=== PATIENT | female | born 1980 | race Caucasian/White ===

== ENCOUNTER 2016-11-28 15:31 | Outpatient (CLI) | payer MEDICAID | END 2016-11-28 15:32 | disposition home or self-care (01) | DX: O09.511 Supervision of elderly primigravida, first trimester (principal) ==

== ENCOUNTER 2016-12-13 | Emergency (ER) | payer MEDICAID | END 2016-12-13 18:07 | disposition home or self-care (01) ==

== ENCOUNTER 2016-12-14 17:23 | Emergency (ER) | payer MEDICAID | END 2016-12-14 19:41 | disposition home or self-care (01) | DX: O9A.212 Injury, poisoning and certain other consequences of external causes complicating pregnancy, second trimester (principal); R10.9 Unspecified abdominal pain; W10.9XXA Fall (on) (from) unspecified stairs and steps, initial encounter; O10.912 Unspecified pre-existing hypertension complicating pregnancy, second trimester; O99.282 Endocrine, nutritional and metabolic diseases complicating pregnancy, second trimester; E03.9 Hypothyroidism, unspecified; O99.332 Smoking (tobacco) complicating pregnancy, second trimester; O09.512 Supervision of elderly primigravida, second trimester; Z3A.15 15 weeks gestation of pregnancy ==

== ENCOUNTER 2017-01-22 11:59 | Outpatient (CLI) | payer MEDICAID | END 2017-01-22 12:00 | disposition home or self-care (01) | DX: E03.9 Hypothyroidism, unspecified (principal); Z36 Encounter for antenatal screening of mother ==

== ENCOUNTER 2017-02-25 13:02 | Outpatient (CLI) | payer MEDICAID | END 2017-02-25 13:03 | disposition home or self-care (01) | DX: Z36 Encounter for antenatal screening of mother (principal) ==

== ENCOUNTER 2017-03-05 14:33 | Outpatient (CLI) | payer MEDICAID | END 2017-03-05 14:34 | disposition home or self-care (01) | DX: Z36 Encounter for antenatal screening of mother (principal) ==

== ENCOUNTER 2017-03-19 14:18 | Outpatient (CLI) | payer MEDICAID | END 2017-03-19 14:19 | DX: Z36 Encounter for antenatal screening of mother (principal) ==

== ENCOUNTER 2017-03-26 18:27 | Outpatient (CLI) | payer MEDICAID | END 2017-03-26 20:30 | disposition home or self-care (01) | DX: O99.89 Other specified diseases and conditions complicating pregnancy, childbirth and the puerperium (principal); M79.1 Myalgia; Z3A.31 31 weeks gestation of pregnancy ==

== ENCOUNTER 2017-03-31 14:57 | Outpatient (CLI) | payer MEDICAID | END 2017-03-31 14:58 | disposition home or self-care (01) | DX: Z36 Encounter for antenatal screening of mother (principal) ==

== ENCOUNTER 2017-04-29 15:21 | Outpatient (CLI) | payer MEDICAID | END 2017-04-29 15:22 | disposition home or self-care (01) | LOC: LAB.R 15:21 | PROVIDERS: ATTEND Obstetrics & Gynecology | DX: Z36 Encounter for antenatal screening of mother (principal) | CPT/HCPCS: 87081 ==

== ENCOUNTER 2017-05-05 13:05 | Outpatient (CLI) | payer MEDICAID ==
--- NOTE | 2017-05-06 10:32 | Ultrasound Report ---
OBSTETRICAL ULTRASOUND: 05/05/2017 CLINICAL HISTORY: This is a followup ultrasound primarily for evaluation of cord insertion within the abdomen. TECHNIQUE: Real-time scanning was performed with promotional representative static images obtained. LAST MENSTRUAL PERIOD 08/19/2016 Clinical Age 37 weeks 0 days US Age 36 weeks 3 days EFW Hadlock 2907 g EFW% Hadlock 37% Heart Rate 132 bpm EDC 05/26/2017 US EDC 05/30/2017 BPD Hadlock 36 weeks 3 days; Mean mm 89.9 HC Hadlock 36 weeks 3 days; Mean mm 322.4 AC Hadlock 36 weeks 1 day; Mean mm 322.7 FL Hadlock 36 weeks 4 days; Mean mm 71.3 Presentation cephalic Placental Location posterior Cervical Length 2.7 cm Amniotic Fluid 11.04 cm FINDINGS: Present gestational age indices indicate a gestational age of 36.5 weeks. Ultrasound EDC today is 05/30/2017. Present gestational age is 2.2 weeks less than expected as calculated from patient's initial ultrasound exam. weight 2907 grams. This is in the 37th percentile. abdominal circumference is still greater than the 10th percentile for gestational age. anatomy was not optimally visualized because of age. Also, amniotic fluid volume measured only 11.04 which is in the 25th percentile. For this reason, an adequate view of the umbilical cord insertion into the abdomen could not be obtained today. Placenta appeared to be posterior. No obvious placenta previa was seen. Maternal cervix measured 2.6 cm. IMPRESSION: 1. SINGLE FETUS IS NOTED IN VERTEX POSITION. GESTATIONAL AGE TODAY BY ULTRASOUND IS 36.5 WEEKS. THIS IS 2.2 WEEKS LESS THAN EXPECTED CALCULATED FROM PATIENT'S INITIAL ULTRASOUND. DESPITE THIS, THE WEIGHT AND ABDOMINAL CIRCUMFERENCE ARE STILL WITHIN NORMAL LIMITS RESIDING BETWEEN THE 10TH AND 50TH PERCENTILE FOR GESTATIONAL AGE. 2. ANATOMY COULD NOT BE OPTIMALLY SEEN TODAY. STILL CANNOT ACCURATELY COMMENT REGARDING THE POSITION OF THE UMBILICAL CORD IN RELATIONSHIP TO THE ABDOMEN. 3. POSTERIOR PLACENTA. 4. AMNIOTIC FLUID VOLUME IS WITHIN THE LOWER LIMITS OF NORMAL MEASURING 11.04 CM. MTDD
== END 2017-05-05 13:06 | disposition home or self-care (01) ==
LOC: DI 13:05
PROVIDERS: ATTEND Obstetrics & Gynecology
DX: Z36 Encounter for antenatal screening of mother (principal)
CPT/HCPCS: 76816

== ENCOUNTER 2017-05-07 14:28 | Outpatient (CLI) | payer MEDICAID ==
[2017-05-07 14:41] VITALS: BP 131/86
== END 2017-05-07 15:10 | disposition home or self-care (01) ==
LOC: WFO 14:28 → OB 14:30 → WFO 15:10
PROVIDERS: ATTEND Obstetrics & Gynecology
DX: O36.8130 Decreased fetal movements, third trimester, not applicable or unspecified (principal); Z3A.37 37 weeks gestation of pregnancy
CPT/HCPCS: 59025

== ENCOUNTER 2017-05-14 21:35 | Inpatient (IN) | payer MEDICAID ==
[2017-05-14] MEDS ORDERED: ONDANSETRON 4 MG/2 ML VIAL IVP PRN (22:16)
[2017-05-14] MEDS ORDERED: SODIUM CHLORIDE FLUSH 0.9% 10 ML SYRINGE IVP PRN (22:16)
[2017-05-14 22:31] LABS: BASOPHILS # (AUTO) 0.1 10^3/uL (0.0-0.1); BASOPHILS % (AUTO) 0.9 %; EOSINOPHILS # (AUTO) 0.1 10^3/uL (0.0-0.7); EOSINOPHILS % (AUTO) 0.5 %; HCT - HEMATOCRIT 37.8 % (37.0-47.0); HGB - HEMOGLOBIN 12.9 g/dL (12.0-16.0); LYMPHOCYTES # (AUTO) 3.4 10^3/uL (1.5-3.5); LYMPHOCYTES % (AUTO) 21.5 %; MEAN CORPUSCULAR HEMOGLOBIN 29.9 pg (27.0-31.0); MEAN CORPUSCULAR HGB CONC 34.2 g/dL (32.0-36.0); MEAN CORPUSCULAR VOLUME 87.6 fL (81.0-99.0); MEAN PLATELET VOLUME 8.7 fL (7.9-10.8); MONOCYTES # (AUTO) 1.1 10^3/uL (0.0-1.0); NEUTROPHILS # (AUTO) 11.2 10^3/uL (1.5-6.6); NEUTROPHILS % (AUTO) 70.1 %; RED BLOOD COUNT 4.32 10^6/uL (4.20-5.40); RED CELL DISTRIBUTION WIDTH 12.8 % (12.0-15.0)
[2017-05-14 22:36] VITALS: BP 154/91
[2017-05-14 22:54] LABS: BILIRUBIN,URINE NEGATIVE (NEGATIVE)
[2017-05-14] MEDS ORDERED: LACTATED RINGERS 1,000 ML IV SCH (23:00)
[2017-05-14 23:10] LABS: ALBUMIN/GLOBULIN RATIO 0.7 (1.0-2.2); BILIRUBIN,TOTAL 0.4 mg/dL (0.2-1.0); CREATININE 1.2 mg/dL (0.4-1.0); POTASSIUM 4.1 mmol/L (3.5-5.0); TOTAL PROTEIN 6.4 g/dL (6.7-8.2); URIC ACID 7.6 mg/dL (2.6-7.2)
[2017-05-14 23:13] LABS: WBC,URINE 0-3 /HPF (0-5)
[2017-05-14 23:14] LABS: UR CULTURE IF IND NOT INDICATED
[2017-05-14] MEDS ORDERED: ALBUTEROL 8 GM INHALER INH PRN (23:20)
[2017-05-15] MEDS ORDERED: ALBUTEROL NEB 2.5 MG/3 ML INH PRN (00:28)
[2017-05-15] MEDS ORDERED: DINOPROSTONE 10 MG SUPP VG ONE (00:54)
[2017-05-15] MEDS ORDERED: buPROPion SR 100 MG TABLET PO ONE (01:00)
[2017-05-15] MEDS ORDERED: NICOTINE 14 MG PATCH TOP ONE (01:00)
[2017-05-15] MEDS ORDERED: buPROPion SR 150 MG TABLET PO ONE (01:17)
[2017-05-15] MEDS: ACETAMINOPHEN 325 MG TABLET PO SCH ×2 (01:26→06:52)
--- NOTE | 2017-05-15 01:31 | Ultrasound Preliminary Report ---
Exam: US OB Biophysical Profile IMPRESSION: 1. Single live intrauterine gestation. 2. Biophysical profile score 6 of 8. 3. Discrepant growth with current exam estimated gestational age of 31 weeks 5 days compared to the estimated gestational age of 37 weeks 6 days based on establish due date. [facility] SITE ID: [id number]
--- NOTE | 2017-05-15 01:57 | Ultrasound Report ---
EXAM: BIOPHYSICAL PROFILE Limited obstetric ultrasound EXAM DATE: 05/15/2017 12:26 AM. CLINICAL HISTORY: Decreased movement Chronic HTN. Established ANANT 05/29/2017 COMPARISON: None. TECHNIQUE: Real-time sonographic evaluation of the fetus performed by the bag machine helper. Multiple repre sentative static images were saved for review. FINDINGS: Heart Rate: 142 beats per minute. Presentation: Cephalic. Placental Position: Posterior and fundal Amniotic Fluid Index: 10.1 cm (Normal 8-24). Biophysical Profile: 04/23 Breathing = 2 Movement = 2 Tone = 0 Amniotic Fluid = 2 BPD: 8.53 cm, 34 weeks 3 days HC: 27.94 cm, 30 weeks 4 days AC: 27.96 cm, 32 weeks 0 days FL: 6.22 cm, 32 weeks 1 days EFW: 1906 Gms EFW%: 23% AUA: 31 Weeks 5 days ANANT: 07/11/2017 IMPRESSION: 1. Single live intrauterine gestation. 2. Biophysical profile score 6 of 8. 3. Discrepant growth with current exam estimated gestational age of 31 weeks 5 days compared to the estimated gestational age of 37 weeks 6 days based on establish due date. [facility] Referring Provider Line: [phone] SITE ID: [id number]
[2017-05-15] MEDS ORDERED: SODIUM CHLORIDE FLUSH 0.9% 10 ML SYRINGE IVP SCH (06:00)
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
[2017-05-15] MEDS ORDERED: LEVOTHYROXINE 25 MCG TABLET PO SCH (07:00)
[2017-05-15] MEDS ORDERED: NICOTINE 14 MG PATCH TOP SCH (09:00)
[2017-05-15] MEDS ORDERED: LABETALOL 100 MG TABLET PO SCH (09:00)
[2017-05-15] MEDS ORDERED: LABETALOL 20 MG/4 ML SYRINGE IVP ONE (12:37)
[2017-05-15] MEDS ORDERED: buPROPion XL 150 MG TABLET PO SCH (23:23)
== END 2017-05-15 12:45 | disposition short-term general hospital (02) | DRG 781 ==
LOC: WFO 21:35 → OB 21:36 → WFO 22:09 → OB 22:10
PROVIDERS: ADMIT Obstetrics & Gynecology; ATTEND Obstetrics & Gynecology
PROC: 3E0P7GC Introduction of Other Therapeutic Substance into Female Reproductive, Via Natural or Artificial Opening (ICD-10-PCS; principal; 2017-05-15)
DX: O36.8130 Decreased fetal movements, third trimester, not applicable or unspecified (principal); O11.3 Pre-existing hypertension with pre-eclampsia, third trimester; Z68.41 Body mass index [BMI] 40.0-44.9, adult; O10.913 Unspecified pre-existing hypertension complicating pregnancy, third trimester; O36.5930 Maternal care for other known or suspected poor fetal growth, third trimester, not applicable or unspecified; Z3A.38 38 weeks gestation of pregnancy; O76 Abnormality in fetal heart rate and rhythm complicating labor and delivery; O99.333 Smoking (tobacco) complicating pregnancy, third trimester; F17.210 Nicotine dependence, cigarettes, uncomplicated; O99.513 Diseases of the respiratory system complicating pregnancy, third trimester; J45.909 Unspecified asthma, uncomplicated; O99.343 Other mental disorders complicating pregnancy, third trimester; F31.9 Bipolar disorder, unspecified; F60.3 Borderline personality disorder; F43.10 Post-traumatic stress disorder, unspecified; O09.513 Supervision of elderly primigravida, third trimester; F42.9 Obsessive-compulsive disorder, unspecified; F41.0 Panic disorder [episodic paroxysmal anxiety]; O99.283 Endocrine, nutritional and metabolic diseases complicating pregnancy, third trimester; E03.9 Hypothyroidism, unspecified; E66.9 Obesity, unspecified; O99.613 Diseases of the digestive system complicating pregnancy, third trimester; K21.9 Gastro-esophageal reflux disease without esophagitis; Z62.810 Personal history of physical and sexual abuse in childhood; Z87.898 Personal history of other specified conditions; Z91.5 Personal history of self-harm; Z91.410 Personal history of adult physical and sexual abuse; Z59.9 Problem related to housing and economic circumstances, unspecified
CPT/HCPCS: 76819; 80053; 80306; 81001; 82570; 83615; 84156; 84450; 84550; 85025; 87086; 99213; 99214

== ENCOUNTER 2017-05-15 12:50 | Outpatient (CLI) | payer MEDICAID | END 2017-05-15 12:51 | disposition short-term general hospital (02) | LOC: EMS 12:50 | PROVIDERS: ATTEND Surgery | DX: O14.93 Unspecified pre-eclampsia, third trimester (principal); Z3A.38 38 weeks gestation of pregnancy | CPT/HCPCS: A0170; A0425; A0434 ==

== ENCOUNTER 2017-06-23 08:00 | Outpatient (CLI) | payer MEDICAID | END 2017-06-23 08:01 | disposition home or self-care (01) | LOC: LAB.R 08:00 | PROVIDERS: ATTEND Obstetrics & Gynecology | DX: Z11.3 Encounter for screening for infections with a predominantly sexual mode of transmission (principal) | CPT/HCPCS: 87491; 87591 ==

== ENCOUNTER 2017-07-03 16:59 | Emergency (ER) | payer MEDICAID ==
[2017-07-03 17:14] VITALS: BP 139/89
--- NOTE | 2017-07-03 17:49 | ED Physician Documentation ---
PD HPI OPHTHO - Stated complaint Stated Complaint: L EYE SWELLING - Chief complaint Chief Complaint: Heent - History obtained from History obtained from: Patient - History of Present Illness Timing - onset: How many weeks ago (1) Timing - duration: Weeks (1) Timing - details: Gradual onset, Still present Location: Left Quality / character: Burning Associated symptoms: Redness, Swelling, Tearing, Discharge (mild), Photophobia ( mild). No: Matting, FB sensation, Decreased vision Contributing factors: No: Exposed to conjunctivitis, Recent URI, FB, Wears contacts Similar symptoms before: Has not had sx before Review of Systems Constitutional: denies: Fever, Chills Eyes: reports: Photophobia, Discharge, Irritation. 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 : None HEENT: None Psych: Depression, Anxiety, Post traumatic stress disorder Musculoskeletal: None, Chronic back pain Derm: None - Past Surgical History Past Surgical History: Yes - Present Medications Home Medications: Ambulatory Orders Medication Instructions Recorded Confirmed Acetaminophen [Tylenol] 325 mg 11/15/16 Albuterol Sulf [Ventolin Hfa 1 - 2 puffs PO 07/03/17 Inhaler] Bupropion HCl [Wellbutrin Sr] 200 mg PO DAILY 07/03/17 07/03/17 High Bp Med 07/03/17 Montelukast [Singulair] 10 mg PO DAILY 07/03/17 07/03/17 Samuel/Polymyx B Sulf/Dexameth 2 drops LEFTEYE QID #1 bottle 07/03/17 [Cmmmen-Zwnsr-Cfztvwwf Eye Drop] raNITIdine [Zantac] PO BID 07/03/17 - Allergies Allergies/Adverse Reactions: Allergies Allergy/AdvReac Type Severity Reaction Status Date / Time Penicillins Allergy Nausea Verified 11/02/16 20:24 codeine AdvReac Nausea Verified 11/02/16 20:24 - Social History Does the pt smoke?: Yes Smoking Status: Current every day smoker Does the pt drink ETOH?: No Does the pt have substance abuse?: No - Immunizations Immunizations are current?: Yes - POLST Patient has POLST: No PD ED PE NORMAL - Vitals Vital signs reviewed: Yes - General General: Alert and oriented X 3, No acute distress, Well developed/nourished - HEENT HEENT: PERRL, Ears normal, Pharynx benign - Neck Neck: Supple, no meningeal sign, No adenopathy - Cardiac Cardiac: RRR, No murmur - Respiratory Respiratory: Clear bilaterally PD ED PE EXPANDED - Eyes Eyes: EOMI, Left eye, Eyelid swelling, Anterior chambers clear, Normal fundi. No: Conj/sclera FB, Corneal abrasion, Corneal ulcer, Fluorescein uptake Results - Vitals Vitals: Oxygen O2 Source Room air PD MEDICAL DECISION MAKING - ED course Complexity details: considered differential (no noted FB. Has redness of conjunctiva with mild crusting. No erosions. Right eye okay. ), d/w patient Departure - Departure Disposition: 01 Home, Self Care Clinical Impression: Conjunctivitis Qualifiers: Conjunctivitis type: acute Acute conjunctivitis type: bacterial Laterality: left Qualified Code(s): H10.32 - Unspecified acute conjunctivitis, left eye Condition: Stable Record reviewed to determine appropriate education?: Yes Instructions: ED Conjunctivitis Bacterial Prescriptions: Samuel/Polymyx B Sulf/Dexameth [Mnmdtn-Lctmg-Ylhwhjsq Eye Drop] 2 drops LEFTEYE QID #1 bottle Comments: Use antibiotic drops 4 times a day in the affected eye. Tylenol or ibuprofen if needed for pain. Recheck if not better over the next couple of days. Discharge Date/Time: 07/03/17 18:22
[2017-07-03] MEDS ORDERED: PROPARACAINE 0.5% OPHTH DROPS 15 ML EACHEYE STA (17:55)
[2017-07-03] MEDS ORDERED: IBUPROFEN 400 MG TABLET PO STA (18:05)
[2017-07-03] MEDS ORDERED: HYDROcod/ACETAM 5/325 MG TABLET PO STA (18:05)
[2017-07-03] MEDS ORDERED: IBUPROFEN 400 MG TABLET PO ONE (18:11)
[2017-07-03] MEDS ORDERED: HYDROcod/ACETAM 5/325 MG TABLET ONE (18:12)
== END 2017-07-03 18:22 | disposition home or self-care (01) ==
LOC: ED 16:59
DX: H10.32 Unspecified acute conjunctivitis, left eye (principal); I10 Essential (primary) hypertension; F17.200 Nicotine dependence, unspecified, uncomplicated
CPT/HCPCS: 99283; A9270

== ENCOUNTER 2017-08-29 16:42 | Emergency (ER) | payer MEDICAID ==
[2017-08-29 16:52] VITALS: BP 155/100
--- NOTE | 2017-08-29 18:01 | ED Physician Documentation ---
PD HPI BACK PAIN - Stated complaint Stated Complaint: BACK PX - Chief complaint Chief Complaint: Back Pain - History obtained from History obtained from: Patient - History of Present Illness Timing - onset: Today (awoke with pain in back radiating to right back of leg.) Timing - duration: Days (1) Timing - details: Abrupt onset, Still present Location: Lower, Right Quality: Pain, Spasm, Aching Associated symptoms: No: Fever, Weakness, Numbness, Incontinent of urine Improves with: Rest Worsened by: Movement, Lifting Contributing factors: No: Lifting, Twisting, Trauma, IVDA Similar symptoms before: Diagnosis (sciatic pain due to disc problems.) Review of Systems Constitutional: denies: Fever, Chills GI: denies: Abdominal Pain, Nausea, Vomiting, Diarrhea Skin: denies: Rash, Lesions Neurologic: denies: Focal weakness, Numbness PD PAST MEDICAL HISTORY - Past Medical History Past Medical History: Yes Cardiovascular: Hypertension Respiratory: Asthma Neuro: Head injury Endocrine/Autoimmune: HyPOthyroidism GI: None 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 : None HEENT: None Psych: Depression, Anxiety, Post traumatic stress disorder Musculoskeletal: None, Chronic back pain Derm: None - Past Surgical History Past Surgical History: No - Present Medications Home Medications: Ambulatory Orders Medication Instructions Recorded Confirmed Acetaminophen [Tylenol] 325 mg PO PRN 11/15/16 08/29/17 Albuterol Sulf [Ventolin Hfa 1 - 2 puffs PO DAILY 07/03/17 08/29/17 Inhaler] Bupropion HCl [Wellbutrin Sr] 200 mg PO DAILY 07/03/17 08/29/17 Montelukast [Singulair] 10 mg PO DAILY 07/03/17 08/29/17 raNITIdine [Zantac] 1 tab PO BID 07/03/17 08/29/17 Cyclobenzaprine [Flexeril] 10 mg PO TID PRN #30 tablet 08/29/17 Dexamethasone [Decadron] 4 mg PO DAILY #5 tablet 08/29/17 Oxycodone HCl/Acetaminophen 1 each PO Q6H PRN #20 tablet 08/29/17 [Percocet 5-325 mg Tablet] - Allergies Allergies/Adverse Reactions: Allergies Allergy/AdvReac Type Severity Reaction Status Date / Time Penicillins Allergy Nausea Verified 08/29/17 16:52 codeine AdvReac Nausea Verified 08/29/17 16:52 - Social History Does the pt smoke?: Yes Smoking Status: Current every day smoker Does the pt drink ETOH?: No Does the pt have substance abuse?: No - Immunizations Immunizations are current?: Yes - POLST Patient has POLST: No PD ED PE NORMAL - Vitals Vital signs reviewed: Yes - General General: Alert and oriented X 3, No acute distress, Well developed/nourished - Abdomen Abdomen: Soft, Non tender - Back Back: No CVA TTP, No spinal TTP (tender right lateral muscles focally. 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 ), d/w patient Departure - Departure Disposition: 01 Home, Self Care Clinical Impression: Low back pain Qualifiers: Chronicity: acute Back pain laterality: bilateral Sciatica presence: without sciatica Qualified Code(s): M54.5 - Low back pain Condition: Stable Record reviewed to determine appropriate education?: Yes Instructions: ED Low Back Pain Injury Prescriptions: Cyclobenzaprine [Flexeril] 10 mg PO TID PRN #30 tablet PRN Reason: Spasms Dexamethasone [Decadron] 4 mg PO DAILY #5 tablet Oxycodone HCl/Acetaminophen [Percocet 5-325 mg Tablet] 1 each PO Q6H PRN #20 tablet PRN Reason: Pain Comments: Heat and gentle stretching for the low back. Continue the ibuprofen a couple times a day. Add Decadron also for inflammation. Flexeril for spasms and stiffness. Add Tylenol or Percocet if needed for pain. Recheck if not improved over the next several days to week. Return if worsening or other symptoms develop. Discharge Date/Time: 08/29/17 19:18
[2017-08-29] MEDS ORDERED: oxyCOD/ACETAMIN 5 MG/325 MG TABLET PO STA (18:39)
[2017-08-29] MEDS ORDERED: CYCLOBENZAPRINE 10 MG TABLET PO STA (18:39)
[2017-08-29] MEDS ORDERED: DEXAMETHASONE 10 MG/ML VIAL PO STA (18:39)
[2017-08-29] MEDS ORDERED: CYCLOBENZAPRINE 10 MG Prepack 2 PO PRN (18:40)
[2017-08-29] MEDS ORDERED: oxyCODONE/ACET 5/325 Prepack 4 PO STA (18:40)
[2017-08-29] MEDS ORDERED: oxyCODONE/ACET 5/325 Prepack 4 PO ONE (18:52)
[2017-08-29] MEDS ORDERED: oxyCOD/ACETAMIN 5 MG/325 MG TABLET PO ONE (18:52)
[2017-08-29] MEDS ORDERED: CYCLOBENZAPRINE 10 MG TABLET PO ONE (18:52)
[2017-08-29] MEDS ORDERED: DEXAMETHASONE 10 MG/ML VIAL ONE (18:52)
[2017-08-29] MEDS ORDERED: CYCLOBENZAPRINE 10 MG Prepack 2 PO ONE (18:53)
== END 2017-08-29 19:18 | disposition home or self-care (01) ==
LOC: ED 16:42
DX: M54.5 Low back pain (principal); I10 Essential (primary) hypertension; E03.9 Hypothyroidism, unspecified; F17.200 Nicotine dependence, unspecified, uncomplicated
CPT/HCPCS: 99283; A9270

== ENCOUNTER 2017-10-07 13:17 | Emergency (ER) | payer MEDICAID ==
[2017-10-07 13:32] VITALS: BP 111/81
--- NOTE | 2017-10-07 13:54 | ED Physician Documentation ---
PD HPI URI - Stated complaint Stated Complaint: COUGH,BODY ACHES - Chief complaint Chief Complaint: Heent - History obtained from History obtained from: Patient - History of Present Illness Timing - onset: Other (36-year-old woman who uses tobacco, she has been sick for about a month with cough productive of green sputum and some shortness of breath with exertion. She also has a runny nose and sore throat and some body aches and headache. There is no associated fever or chill. She has had some sweats at night and has difficulty sleeping because of the cough. She was seen at another facility about a week ago and started on a 10 day course of Levaquin which has not helped.) Review of Systems Constitutional: reports: Sweats. 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 : None HEENT: None Psych: Depression, Anxiety, Post traumatic stress disorder Musculoskeletal: None, Chronic back pain Derm: None - Past Surgical History Past Surgical History: No - Present Medications Home Medications: Ambulatory Orders Medication Instructions Recorded Confirmed Albuterol Sulf [Ventolin Hfa 1 - 2 puffs PO DAILY 07/03/17 10/07/17 Inhaler] Bupropion HCl [Wellbutrin Sr] 200 mg PO DAILY 07/03/17 10/07/17 raNITIdine [Zantac] 1 tab PO BID 07/03/17 10/07/17 Albuterol Sulfate [Proventil Hfa 1 - 2 puffs IH Q4H PRN #1 10/07/17 Inhaler] hfa.aer.[email or web address] Hydrocodone Bit/Homatrop Me-Br 5 - 10 ml PO Q6H PRN #120 ml 10/07/17 [Hydrocodone-Homatropine Syrup] Levothyroxine Sodium 50 mcg PO DAILY 10/07/17 10/07/17 predniSONE [Deltasone] 20 mg PO [id number] #21 tab 10/07/17 - Allergies Allergies/Adverse Reactions: Allergies Allergy/AdvReac Type Severity Reaction Status Date / Time Penicillins Allergy Nausea Verified 08/29/17 16:52 codeine AdvReac Nausea Verified 08/29/17 16:52 - Social History Does the pt smoke?: Yes Smoking Status: Current every day smoker Does the pt drink ETOH?: No Does the pt have substance abuse?: No - Immunizations Immunizations are current?: Yes - POLST Patient has POLST: No PD ED PE NORMAL - Vitals Vital signs reviewed: Yes - General General: Alert and oriented X 3, No acute distress - HEENT HEENT: PERRL, EOMI - Neck Neck: Supple, no meningeal sign, No bony TTP - Cardiac Cardiac: RRR, No murmur - Respiratory Respiratory: No respiratory distress, Clear bilaterally - Abdomen Abdomen: Non tender - Extremities Extremities: No edema, No calf tenderness / cord - Neuro Neuro: Alert and oriented X 3, Normal speech Results - Vitals Vitals: Vital Signs - 24 hr 10/07/17 13:29 Temperature 36.4 C L Heart Rate 89 Respiratory 17 Rate Blood Pressure 111/81 H O2 Saturation 99 Oxygen O2 Source Room air PD MEDICAL DECISION MAKING - ED course ED course: 36-year-old woman with clinical bronchitis. No evidence of bacterial infection which probably explains the fact that she has not resolved with antibiotics. She was counseled at length quit smoking. Departure - Departure Disposition: Home, Self Care Clinical Impression: Bronchitis Condition: Good Record reviewed to determine appropriate education?: Yes Instructions: ED Upper Resp Infec No Abx Tx Prescriptions: Albuterol Sulfate [Proventil Hfa Inhaler] 1 - 2 puffs IH Q4H PRN #1 hfa.[email or web address] PRN Reason: Cough Hydrocodone Bit/Homatrop Me-Br [Hydrocodone-Homatropine Syrup] 5 - 10 ml PO Q6H PRN #120 ml PRN Reason: Cough predniSONE [Deltasone] 20 mg PO [id number] #21 tab Comments: Call your doctor to arrange a follow-up appointment, make the next available appointment. In the interim, return anytime if worse or if new symptoms develop. Your blood pressure was elevated today on check into the emergency department. This does not mean that you have hypertension, it is a common phenomenon to come to the emergency department and have elevated blood pressure. I recommend that you see your primary care physician within the week to have it rechecked when you are feeling better. Forms: Activity restrictions
== END 2017-10-07 14:00 | disposition home or self-care (01) ==
LOC: ED 13:17
DX: J40 Bronchitis, not specified as acute or chronic (principal); I10 Essential (primary) hypertension; E03.9 Hypothyroidism, unspecified; F17.200 Nicotine dependence, unspecified, uncomplicated
CPT/HCPCS: 99283

== ENCOUNTER 2017-10-10 21:46 | Emergency (ER) | payer MEDICAID ==
--- NOTE | 2017-10-10 22:10 | ED Physician Documentation ---
PD HPI URI - Stated complaint Stated Complaint: SHARPE/COUGH - Chief complaint Chief Complaint: Resp - History obtained from History obtained from: Patient - History of Present Illness Timing - onset: How many weeks ago (2) Timing duration: Weeks (2) Timing details: Gradual onset, Still present Associated symptoms: Nasal congestion, Dry cough, Chest pain (with coughing). No: Fever (not anymore), Swollen nodes, Hemoptysis Improves by: Rest, Medication (cough med helped but inhaler doesn't seem to help.) Similar symptoms before: Has not had sx before Recently seen: Emergency Dept (4-5 days ago with Rx for Pred, albuterol and hydrocodone cough med. She says cough med was helping well but is out of it. Inhaler not really helping.) Review of Systems Constitutional: reports: Myalgias, Fatigue. denies: Fever Nose: reports: Congestion Throat: denies: Sore throat Cardiac: reports: Chest pain / pressure Respiratory: reports: Cough. denies: Dyspnea, Wheezing GI: reports: Nausea. 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 : None HEENT: None Psych: Depression, Anxiety, Post traumatic stress disorder Musculoskeletal: None, Chronic back pain Derm: None - Past Surgical History Past Surgical History: No - Present Medications Home Medications: Ambulatory Orders Medication Instructions Recorded Confirmed Albuterol Sulf [Ventolin Hfa 1 - 2 puffs PO DAILY 07/03/17 10/10/17 Inhaler] Bupropion HCl [Wellbutrin Sr] 200 mg PO DAILY 07/03/17 10/10/17 raNITIdine [Zantac] 1 tab PO BID 07/03/17 10/10/17 Albuterol Sulfate [Proventil Hfa 1 - 2 puffs IH Q4H PRN #1 10/07/17 10/10/17 Inhaler] hfa.aer.ad Hydrocodone Bit/Homatrop Me-Br 5 - 10 ml PO Q6H PRN #120 ml 10/07/17 10/10/17 [Hydrocodone-Homatropine Syrup] Levothyroxine Sodium 50 mcg PO DAILY 10/07/17 10/10/17 predniSONE [Deltasone] 20 mg PO CONCK56ENW #21 tab 10/07/17 10/10/17 Benzonatate [Tessalon] 100 mg PO TID PRN #25 capsule 10/10/17 Hydrocodone Bit/Homatrop Me-Br 5 - 10 ml PO Q6H PRN #240 ml 10/10/17 [Hydrocodone Compound Syrup] - Allergies Allergies/Adverse Reactions: Allergies Allergy/AdvReac Type Severity Reaction Status Date / Time Penicillins Allergy Nausea Verified 10/10/17 21:56 codeine AdvReac Nausea Verified 10/10/17 21:56 - Social History Does the pt smoke?: Yes Smoking Status: Current every day smoker Does the pt drink ETOH?: No Does the pt have substance abuse?: No - Immunizations Immunizations are current?: Yes - POLST Patient has POLST: No PD ED PE NORMAL - Vitals Vital signs reviewed: Yes - General General: Alert and oriented X 3, No acute distress, Well developed/nourished - HEENT HEENT: Ears normal, Pharynx benign - Neck Neck: Supple, no meningeal sign, No adenopathy - Cardiac Cardiac: RRR, No murmur - Respiratory Respiratory: Clear bilaterally - Abdomen Abdomen: Soft, Non tender - Back Back: No CVA TTP - Derm Derm: Normal color, Warm and dry - Neuro Neuro: Alert and oriented X 3, No motor deficit, Normal speech Results - Vitals Vitals: Vital Signs - 24 hr 10/10/17 10/10/17 21:54 23:35 Temperature 36.9 C 36.8 C Heart Rate 93 93 Respiratory 20 18 Rate Blood Pressure 124/85 H 122/80 O2 Saturation 98 95 Oxygen O2 Source Room air PD MEDICAL DECISION MAKING - ED course Complexity details: reviewed old records, considered differential (still seems like viral bronchitis and residual cough now of it. ), d/w patient Departure - Departure Disposition: 01 Home, Self Care Clinical Impression: Upper respiratory infection Qualifiers: URI type: unspecified URI Qualified Code(s): J06.9 - Acute upper respiratory infection, unspecified Condition: Stable Record reviewed to determine appropriate education?: Yes Instructions: ED Upper Resp Infec No Abx Tx Prescriptions: Benzonatate [Tessalon] 100 mg PO TID PRN #25 capsule PRN Reason: Cough Hydrocodone Bit/Homatrop Me-Br [Hydrocodone Compound Syrup] 5 - 10 ml PO Q6H PRN #240 ml PRN Reason: Cough Comments: Continue the prednisone taper and continue using the albuterol inhaler 2 puffs 4 times a day for the next week or so. This tries to reduce bronchial irritation and inflammation. To it add Tessalon if needed for cough. Drink lots of fluids. Tylenol or ibuprofen if needed for pain. Add hydrocodone cough syrup only if needed for worse cough. After bronchitis, upper respiratory infection the cough can continue for several weeks to a month. Hopefully will taper down soon. Discharge Date/Time: 10/10/17 22:40
[2017-10-10] MEDS ORDERED: HYDROcod/ACET 5/325 Prepack 6 PO ONE ×2 (22:15→22:25)
[2017-10-10] MEDS ORDERED: BENZONATATE 100 MG CAPSULE PO STA (22:15)
[2017-10-10] MEDS ORDERED: BENZONATATE 100 MG CAPSULE PO ONE (22:25)
[2017-10-11 00:01] VITALS: BP 122/80
== END 2017-10-10 22:40 | disposition home or self-care (01) ==
LOC: ED 21:46
DX: J06.9 Acute upper respiratory infection, unspecified (principal); I10 Essential (primary) hypertension; J45.909 Unspecified asthma, uncomplicated; E03.9 Hypothyroidism, unspecified; F17.200 Nicotine dependence, unspecified, uncomplicated
CPT/HCPCS: 99283; A9270

== ENCOUNTER 2017-10-13 11:16 | Emergency (ER) | payer MEDICAID ==
--- NOTE | 2017-10-13 11:59 | ED Physician Documentation ---
PD HPI URI - Stated complaint Stated Complaint: REFIL MED, COUGH - Chief complaint Chief Complaint: Resp - History obtained from History obtained from: Patient - History of Present Illness Timing - onset: How many weeks ago (3) Timing duration: Weeks (3) Timing details: Gradual onset, Still present Associated symptoms: Nasal congestion, Rhinorrhea, Sore throat, Dry cough Improves by: Rest, Medication Worsened by: Activity Similar symptoms before: Diagnosis (bronchitis) Recently seen: Emergency Dept - Additional information Additional information: Patient is a 36-year-old female has had a cough for the past 3 weeks she has been on a course of Levaquin without improvement she is been evaluated twice here in the emergency department she was seen here yesterday and prescribed Tessalon and a cough syrup containing codeine and she has lost her prescription. 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 : None HEENT: None Psych: Depression, Anxiety, Post traumatic stress disorder Musculoskeletal: None, Chronic back pain Derm: None - Past Surgical History Past Surgical History: No - Present Medications Home Medications: Ambulatory Orders Medication Instructions Recorded Confirmed Bupropion HCl [Wellbutrin Sr] 200 mg PO DAILY 07/03/17 10/13/17 raNITIdine [Zantac] 1 tab PO BID 07/03/17 10/13/17 Albuterol Sulfate [Proventil Hfa 1 - 2 puffs IH Q4H PRN #1 10/07/17 10/13/17 Inhaler] hfa.aer.ad Levothyroxine Sodium 50 mcg PO DAILY 10/07/17 10/13/17 cefUROXime axetil [Ceftin] 500 mg PO Q12H #20 tablet 10/13/17 - Allergies Allergies/Adverse Reactions: Allergies Allergy/AdvReac Type Severity Reaction Status Date / Time Penicillins Allergy Nausea Verified 10/13/17 11:32 codeine AdvReac Nausea Verified 10/13/17 11:32 - Social History Does the pt smoke?: Yes Smoking Status: Current every day smoker Does the pt drink ETOH?: No Does the pt have substance abuse?: No - Immunizations Immunizations are current?: Yes - POLST Patient has POLST: No PD ED PE NORMAL - Vitals Vital signs reviewed: Yes (Hypertensive) - General General: No acute distress, Well developed/nourished - HEENT HEENT: Atraumatic, PERRL, EOMI, Pharynx benign, Other (The right TM is inflamed with rounding of the umbo the left is clear.) - Neck Neck: Supple, no meningeal sign, No bony TTP - Cardiac Cardiac: RRR, No murmur - Respiratory Respiratory: No respiratory distress, Other (Scattered wheezes and rhonchi) - Abdomen Abdomen: Soft, Non tender - Back Back: No CVA TTP, No spinal TTP - Derm Derm: Normal color, Warm and dry, No rash - Extremities Extremities: No deformity, No edema - Neuro Neuro: No motor deficit, No sensory deficit Eye Opening: Spontaneous Motor: Obeys Commands Verbal: Oriented GCS Score: 15 - Psych Psych: Normal mood, Normal affect Results - Vitals Vitals: Vital Signs - 24 hr 10/13/17 11:23 Temperature 35.9 C L Heart Rate 89 Respiratory 17 Rate Blood Pressure 134/89 H O2 Saturation 98 Oxygen O2 Source Room air PD MEDICAL DECISION MAKING - ED course Complexity details: reviewed old records, considered differential, d/w patient ED course: 36-year-old female with a history of bronchitis on examination today does have inflammation of the right middle ear. We will place her on some antibiotic with this. She has been on a course of Levaquin we will switch to Augmentin. She did lose a prescription containing codeine we will not refill that we will refill her Tessalon. Departure - Departure Disposition: 01 Home, Self Care Clinical Impression: Otitis media Qualifiers: Otitis media type: suppurative Chronicity: acute Laterality: right Recurrence: not specified as recurrent Spontaneous tympanic membrane rupture: without spontaneous rupture Qualified Code(s): H66.001 - Acute suppurative otitis media without spontaneous rupture of ear drum, right ear Condition: Stable Instructions: ED Otitis Media Acute Adult Follow-Up: Ren Apple PA-C [Primary Care Provider] - Prescriptions: cefUROXime axetil [Ceftin] 500 mg PO Q12H #20 tablet
[2017-10-13 12:34] VITALS: BP 132/91
== END 2017-10-13 12:33 | disposition home or self-care (01) ==
LOC: ED 11:16
DX: H66.001 Acute suppurative otitis media without spontaneous rupture of ear drum, right ear (principal); I10 Essential (primary) hypertension; E03.9 Hypothyroidism, unspecified; F17.200 Nicotine dependence, unspecified, uncomplicated
CPT/HCPCS: 99283

== ENCOUNTER 2017-11-15 22:47 | Emergency (ER) | payer MEDICAID ==
[2017-11-15 22:53] VITALS: BP 142/80
[2017-11-15 23:05] LABS: BILIRUBIN,URINE NEGATIVE (NEGATIVE); GLUCOSE, URINE (UA) NEGATIVE (NEGATIVE); KETONES,URINE (UA) NEGATIVE (NEGATIVE); LEUKOCYTE ESTERASE, URINE NEGATIVE (NEGATIVE); NITRITE,URINE NEGATIVE (NEGATIVE); OCCULT BLOOD,URINE TRACE-INTA (NEGATIVE); PROTEIN,URINE NEGATIVE (NEGATIVE); UROBILINOGEN,URINE 0.2 (NORMAL) E.U./dL (NORMAL)
[2017-11-15 23:12] LABS: CLARITY,URINE CLEAR (CLEAR); HCG UR QUAL NEGATIVE
[2017-11-15] MEDS ORDERED: ACETAMINOPHEN 500 MG TABLET PO STA (23:12)
[2017-11-15] MEDS ORDERED: CYCLOBENZAPRINE 10 MG TABLET PO STA (23:12)
--- NOTE | 2017-11-15 23:15 | ED Physician Documentation ---
PD HPI BACK PAIN - Stated complaint Stated Complaint: LOWER BACK PX - Chief complaint Chief Complaint: Back Pain - History obtained from History obtained from: Patient - History of Present Illness Timing - onset: Today Timing - details: Abrupt onset, Still present Location: Upper, Lower, Right, Left Quality: Pain, Spasm Associated symptoms: No: Fever, Weakness, Numbness, Hematuria Worsened by: Movement, Palpation Similar symptoms before: Has not had sx before Recently seen: Not recently seen - Additional information Additional information: Patient is a 37 year old female who is presenting to the emergency department for back pain. patient states that she was coughing this evening when she feels like she caused the muslces in her back to spasm. patient denies any trauma, or neurological deficit. patient took 800mg of motrin with little relief. Review of Systems Constitutional: denies: Fever, Chills Eyes: reports: Reviewed and negative Ears: reports: Reviewed and negative Nose: reports: Reviewed and negative Throat: reports: Reviewed and negative Cardiac: reports: Reviewed and negative Respiratory: reports: Reviewed and negative GI: reports: Reviewed and negative : denies: Dysuria, Frequency, Unable to Void, Incontinent, Discharge, Vaginal bleeding Skin: denies: Lesions, Abrasion (s) Musculoskeletal: reports: Back pain. 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 : None HEENT: None Psych: Depression, Anxiety, Post traumatic stress disorder Musculoskeletal: None, Chronic back pain Derm: None - Past Surgical History Past Surgical History: No - Present Medications Home Medications: Ambulatory Orders Medication Instructions Recorded Confirmed Bupropion HCl [Wellbutrin Sr] 200 mg PO DAILY 07/03/17 10/13/17 raNITIdine [Zantac] 1 tab PO BID 07/03/17 10/13/17 Albuterol Sulfate [Proventil Hfa 1 - 2 puffs IH Q4H PRN #1 10/07/17 10/13/17 Inhaler] hfa.aer.ad Levothyroxine Sodium 50 mcg PO DAILY 10/07/17 10/13/17 cefUROXime axetil [Ceftin] 500 mg PO Q12H #20 tablet 10/13/17 Cyclobenzaprine [Flexeril] 10 mg PO TID PRN #7 tablet 11/15/17 - Allergies Allergies/Adverse Reactions: Allergies Allergy/AdvReac Type Severity Reaction Status Date / Time Penicillins Allergy Nausea Verified 10/13/17 11:32 codeine AdvReac Nausea Verified 10/13/17 11:32 - Social History Does the pt smoke?: Yes Smoking Status: Current every day smoker Does the pt drink ETOH?: No Does the pt have substance abuse?: No - Immunizations Immunizations are current?: Yes - POLST Patient has POLST: No PD ED PE NORMAL - Vitals Vital signs reviewed: Yes - General General: Alert and oriented X 3, No acute distress - HEENT HEENT: Atraumatic, PERRL - Cardiac Cardiac: RRR, No murmur - Respiratory Respiratory: No respiratory distress - Abdomen Abdomen: Soft, Non distended - Derm Derm: Normal color, Warm and dry, No rash - Extremities Extremities: No deformity, No edema - Neuro Neuro: Alert and oriented X 3, No motor deficit, No sensory deficit, Normal speech Eye Opening: Spontaneous Motor: Obeys Commands Verbal: Oriented GCS Score: 15 PD ED PE EXPANDED - Back Back: Soft tissue tenderness (mild paraspinal muscle tenderness, no bony tenderness or deformity) Results - Vitals Vitals: Vital Signs - 24 hr 11/15/17 22:49 Temperature 36.5 C Heart Rate 89 Respiratory 20 Rate Blood Pressure 142/80 H O2 Saturation 93 Oxygen O2 Source Room air - Labs Labs: Laboratory Tests 11/15/17 23:00 Urine Color YELLOW Urine Clarity CLEAR Urine pH 6.0 Ur Specific [place] >=1.030 H Urine Protein NEGATIVE Urine Glucose (UA) NEGATIVE Urine Ketones NEGATIVE Urine Occult Blood TRACE-INTA Urine Nitrite NEGATIVE Urine Bilirubin NEGATIVE Urine Urobilinogen 0.2 (NORMAL) Ur Leukocyte Esterase NEGATIVE Ur Microscopic Review NOT INDICATED Urine Culture Comments NOT INDICATED Urine HCG, Qual NEGATIVE PD MEDICAL DECISION MAKING - ED course Complexity details: reviewed old records, reviewed results, re-evaluated patient , considered differential, d/w patient, d/w family ED course: Patient was seen and examined at bedside. patient was well appearing and in no distress. urine was collected and within normal limits. patient was treated with tylenol and flexeril. Patient's imaging was non traumatic and imaging was not indicated at this time. patient required no further work up and was stable for discharge with outpatient follow up. Departure - Departure Disposition: 01 Home, Self Care Clinical Impression: Back pain Condition: Good Instructions: ED Spasm Back No Trauma Follow-Up: Ren Apple PA-C [Primary Care Provider] - As Needed Prescriptions: Cyclobenzaprine [Flexeril] 10 mg PO TID PRN #7 tablet PRN Reason: Spasms Comments: Your pain is likely due to a muscle spasm. You should take motrin 600mg and tylenol 1000mg as needed for pain. You can take an occasional flexeril for spams but you should not take it with alcohol or drive while taking it. You should apply ice or heat to your back and stretch. You should follow up with your pmd if your symptoms persist. You may return to the emergency department at any time for new, worsening or uncontrollable symptoms.
== END 2017-11-15 23:20 | disposition home or self-care (01) ==
LOC: ED 22:47
DX: M54.5 Low back pain (principal); I10 Essential (primary) hypertension; E03.9 Hypothyroidism, unspecified; F17.200 Nicotine dependence, unspecified, uncomplicated
CPT/HCPCS: 81003; 81025; 99283; A9270; 81001; 87086

== ENCOUNTER 2017-12-04 19:22 | Emergency (ER) | payer MEDICAID ==
[2017-12-04] MEDS ORDERED: CYCLOBENZAPRINE 10 MG TABLET PO STA (20:47)
[2017-12-04] MEDS ORDERED: ACETAMINOPHEN 325 MG TABLET PO STA (20:47)
--- NOTE | 2017-12-04 20:49 | ED Physician Documentation ---
History of Present Illness - Stated complaint Stated Complaint: GLF - Chief complaint Chief Complaint: Trauma Ext - History obtained from History obtained from: Patient, Friend - History of Present Illness Timing: How many hours ago (8) Pain level max: 5 Pain level now: 4 Improved by: rest Worsened by: movement - Additonal information Additional information: fall R arm pain. Fell off log in the green. 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 No head or neck pain. no LOC. no vomiting. 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 : None HEENT: None Psych: Depression, Anxiety, Post traumatic stress disorder Musculoskeletal: None, Chronic back pain Derm: None - Past Surgical History Past Surgical History: No - Present Medications Home Medications: Ambulatory Orders Medication Instructions Recorded Confirmed Bupropion HCl [Wellbutrin Sr] 200 mg PO DAILY 07/03/17 10/13/17 raNITIdine [Zantac] 1 tab PO BID 07/03/17 10/13/17 Albuterol Sulfate [Proventil Hfa 1 - 2 puffs IH Q4H PRN #1 10/07/17 10/13/17 Inhaler] hfa.aer.ad Levothyroxine Sodium 50 mcg PO DAILY 10/07/17 10/13/17 cefUROXime axetil [Ceftin] 500 mg PO Q12H #20 tablet 10/13/17 Cyclobenzaprine [Flexeril] 10 mg PO TID PRN #7 tablet 11/15/17 Meloxicam [Mobic] 7.5 mg PO BID PRN #20 tablet 12/04/17 - Allergies Allergies/Adverse Reactions: Allergies Allergy/AdvReac Type Severity Reaction Status Date / Time Penicillins Allergy Nausea Verified 10/13/17 11:32 codeine AdvReac Nausea Verified 10/13/17 11:32 - Social History Does the pt smoke?: Yes Smoking Status: Current every day smoker Does the pt drink ETOH?: No Does the pt have substance abuse?: No - Immunizations Immunizations are current?: Yes - POLST Patient has POLST: No PD ED PE NORMAL - Vitals Vital signs reviewed: Yes - General General: Alert and oriented X 3, No acute distress - HEENT HEENT: Atraumatic, PERRL, Moist mucous membranes - Neck Neck: Supple, no meningeal sign, No bony TTP - Cardiac Cardiac: RRR, Strong equal pulses - Respiratory Respiratory: No respiratory distress, Clear bilaterally - Back Back: No spinal TTP - Derm Derm: Warm and dry - Extremities Extremities: No deformity, Other (Mild diffuse tenderness palpation about the right wrist. Otherwise there is no tenderness along the right upper extremity including the shoulder, clavicle and scapula. Full range of motion is present at each of the joints of the right upper extremity. No snuffbox tenderness. Neurovascularly intact.) - Neuro Neuro: Alert and oriented X 3, composition stone applicator 2-12 intact, No motor deficit, No sensory deficit, Normal speech Results - Vitals Vitals: Vital Signs - 24 hr 12/04/17 12/04/17 19:33 21:59 Temperature 36.5 C 36.6 C Heart Rate 90 80 Respiratory 16 16 Rate Blood Pressure 142/79 H 130/92 H O2 Saturation 97 96 Oxygen O2 Source Room air - Rads (name of study) R wrist xray Radiology: Prelim report reviewed, EMP read contemporaneously, See rad report ( normal) PD MEDICAL DECISION MAKING - ED course Complexity details: reviewed old records, reviewed results, re-evaluated patient , considered differential, d/w patient ED course: Pain well controlled in the emergency department. No bony tenderness other than about the right wrist. No snuffbox tenderness to suggest occult scaphoid fracture. Negative x-ray. Placed in a Velcro splint for comfort. Will have her follow-up with her PCP for further evaluation and care. No evidence of clavicular or scapular fracture. No shoulder dislocation. No evidence of radial head fracture. Supination and pronation of the hand and forearm do not cause pain. Neurovascularly intact. Patient counseled regarding signs and symptoms for which I believe and urgent re-evaluation would be necessary. Patient with good understanding of and agreement to plan and is comfortable going home at this time This document was made in part using voice recognition software. While efforts are made to proofread this document, sound alike and grammatical errors may occur. Departure - Departure Disposition: 01 Home, Self Care Clinical Impression: Wrist sprain Qualifiers: Encounter type: initial encounter Laterality: right Qualified Code(s): S63.501A - Unspecified sprain of right wrist, initial encounter Condition: Good Instructions: ED Sprain Wrist Follow-Up: Ren Apple PA-C [Primary Care Provider] - Within 1 week Prescriptions: Meloxicam [Mobic] 7.5 mg PO BID PRN #20 tablet PRN Reason: Pain Comments: Wear the splint until seen by your doctor next week. . Return if you worsen. Discharge Date/Time: 12/04/17 22:03
--- NOTE | 2017-12-04 21:35 | XRAY Report ---
EXAM: RIGHT WRIST RADIOGRAPHY EXAM DATE: 12/04/2017 09:14 PM. CLINICAL HISTORY: Fall, R wrist pain. COMPARISON: None. TECHNIQUE: 4 views. FINDINGS: Bones: No fracture demonstrated. Joints: No subluxation or dislocation. Soft Tissues: No abnormal soft tissue calcifications. IMPRESSION: No fracture or subluxation. [facility] Referring Provider Line: [phone] SITE ID: [id number]
[2017-12-04 22:00] VITALS: BP 130/92
== END 2017-12-04 22:03 | disposition home or self-care (01) ==
LOC: ED 19:22
DX: S63.501A Unspecified sprain of right wrist, initial encounter (principal); W18.30XA Fall on same level, unspecified, initial encounter; Y92.828 Other wilderness area as the place of occurrence of the external cause; I10 Essential (primary) hypertension; E03.9 Hypothyroidism, unspecified; F17.200 Nicotine dependence, unspecified, uncomplicated
CPT/HCPCS: 73110; 99283; A9270

== ENCOUNTER 2018-01-08 14:27 | Outpatient (CLI) | payer MEDICAID ==
[2018-01-08 19:03] LABS: BASOPHILS # (AUTO) 0.1 10^3/uL (0.0-0.1); BASOPHILS % (AUTO) 0.5 %; EOSINOPHILS # (AUTO) 0.1 10^3/uL (0.0-0.7); EOSINOPHILS % (AUTO) 1.1 %; HGB - HEMOGLOBIN 13.3 g/dL (12.0-16.0); LYMPHOCYTES # (AUTO) 2.7 10^3/uL (1.5-3.5); LYMPHOCYTES % (AUTO) 21.5 %; MEAN CORPUSCULAR HEMOGLOBIN 29.5 pg (27.0-31.0); MEAN CORPUSCULAR HGB CONC 33.9 g/dL (32.0-36.0); MEAN PLATELET VOLUME 7.6 fL (7.9-10.8); MONOCYTES % (AUTO) 7.9 %; NEUTROPHILS # (AUTO) 8.5 10^3/uL (1.5-6.6); PLT - PLATELET COUNT 393 10^3/uL (130-450); WHITE BLOOD COUNT 12.4 x10^3/uL (4.8-10.8)
[2018-01-08 19:09] LABS: BUN - BLOOD UREA NITROGEN 18 mg/dL (6-20); CALCIUM 9.5 mg/dL (8.5-10.3); CARBON DIOXIDE - CO2 25 mmol/L (21-32); CHLORIDE 101 mmol/L (101-111); CREATININE 0.8 mg/dL (0.4-1.0); GFR - MDRD 80 (>89); GLUCOSE 97 mg/dL (70-100); SODIUM 133 mmol/L (135-145)
== END 2018-01-08 14:28 | disposition home or self-care (01) ==
LOC: LAB.N 14:27
PROVIDERS: ATTEND Physician Assistant Medical
DX: M25.532 Pain in left wrist (principal); M54.5 Low back pain; M54.89 Other dorsalgia; F17.210 Nicotine dependence, cigarettes, uncomplicated; E03.9 Hypothyroidism, unspecified; I10 Essential (primary) hypertension; M19.90 Unspecified osteoarthritis, unspecified site
CPT/HCPCS: 36415; 80048; 84443; 85025

== ENCOUNTER 2018-06-09 09:38 | Emergency (ER) | payer MEDICAID ==
[2018-06-09 09:59] VITALS: BP 137/88
--- NOTE | 2018-06-09 10:09 | ED Physician Documentation ---
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 : None HEENT: None Psych: Depression, Anxiety, Post traumatic stress disorder Musculoskeletal: None, Chronic back pain Derm: None - Past Surgical History Past Surgical History: No - Present Medications Home Medications: Ambulatory Orders Medication Instructions Recorded Confirmed Bupropion HCl [Wellbutrin Sr] 200 mg PO DAILY 07/03/17 10/13/17 raNITIdine [Zantac] 1 tab PO BID 07/03/17 10/13/17 Albuterol Sulfate [Proventil Hfa 1 - 2 puffs IH Q4H PRN #1 10/07/17 10/13/17 Inhaler] hfa.aer.ad Levothyroxine Sodium 50 mcg PO DAILY 10/07/17 10/13/17 cefUROXime axetil [Ceftin] 500 mg PO Q12H #20 tablet 10/13/17 Cyclobenzaprine [Flexeril] 10 mg PO TID PRN #7 tablet 11/15/17 Meloxicam [Mobic] 7.5 mg PO BID PRN #20 tablet 12/04/17 Cephalexin [Keflex] 500 mg PO Q6H #28 capsule 06/09/18 Mupirocin Calcium [Bactroban] 1 applic TP BID #30 cream..g. 06/09/18 - Allergies Allergies/Adverse Reactions: Allergies Allergy/AdvReac Type Severity Reaction Status Date / Time Penicillins Allergy Nausea Verified 10/13/17 11:32 codeine AdvReac Nausea Verified 10/13/17 11:32 - Social History Does the pt smoke?: Yes Smoking Status: Current every day smoker Does the pt drink ETOH?: No Does the pt have substance abuse?: No - Immunizations Immunizations are current?: Yes - POLST Patient has POLST: No PD ED PE NORMAL - Vitals Vital signs reviewed: Yes - Neck Neck: Supple, no meningeal sign - Cardiac Cardiac: RRR - Respiratory Respiratory: No respiratory distress, Clear bilaterally - Extremities Extremities: Other (L FA with approx 3 cm diameter erythe =ma wamrth and TTP with small scab in middle, no abscess, no fluctuance, no creptitus no bullae no necrosis no streaking) Results - Vitals Vitals: Vital Signs - 24 hr 06/09/18 09:46 Temperature 36.3 C L Heart Rate 83 Respiratory 12 Rate Blood Pressure 137/88 H O2 Saturation 96 Oxygen O2 Source Room air PD MEDICAL DECISION MAKING - ED course ED course: pt does not know her rxn to pencillin and is not aware of cephalo allergy no hx MRSA - Sepsis Event Vital Signs: Vital Signs - 24 hr 06/09/18 09:46 Temperature 36.3 C L Heart Rate 83 Respiratory 12 Rate Blood Pressure 137/88 H O2 Saturation 96 Oxygen O2 Source Room air Departure - Departure Disposition: 01 Home, Self Care Clinical Impression: Cellulitis Qualifiers: Site of cellulitis: extremity Site of cellulitis of extremity: upper extremity Laterality: left Qualified Code(s): L03.114 - Cellulitis of left upper limb Condition: Good Instructions: ED Infec Skin Cellulitis Follow-Up: Ren Apple PA-C [Primary Care Provider] - (for a recheck if not improving in 48 hr) Prescriptions: Cephalexin [Keflex] 500 mg PO Q6H #28 capsule Mupirocin Calcium [Bactroban] 1 applic TP BID #30 cream..g.
== END 2018-06-09 10:32 | disposition home or self-care (01) ==
LOC: ED 09:38
DX: L03.114 Cellulitis of left upper limb (principal); I10 Essential (primary) hypertension; F17.200 Nicotine dependence, unspecified, uncomplicated
CPT/HCPCS: 99283

== ENCOUNTER 2019-04-06 02:44 | Outpatient (CLI) | payer SELFPAY | END 2019-04-06 02:45 | disposition EMS.NT | LOC: EMS 02:44 | PROVIDERS: ATTEND Surgery | DX: S09.90XA Unspecified injury of head, initial encounter (principal); Y04.2XXA Assault by strike against or bumped into by another person, initial encounter ==

== ENCOUNTER 2019-08-23 17:02 | Outpatient (CLI) | payer MEDICAID ==
[2019-08-23 17:16] LABS: BASOPHILS # (AUTO) 0.1 10^3/uL (0.0-0.1); BASOPHILS % (AUTO) 0.6 %; EOSINOPHILS # (AUTO) 0.1 10^3/uL (0.0-0.7); EOSINOPHILS % (AUTO) 0.8 %; HGB - HEMOGLOBIN 13.9 g/dL (12.0-16.0); LYMPHOCYTES # (AUTO) 2.3 10^3/uL (1.5-3.5); LYMPHOCYTES % (AUTO) 19.5 %; MEAN CORPUSCULAR HEMOGLOBIN 29.2 pg (27.0-31.0); MEAN CORPUSCULAR HGB CONC 33.3 g/dL (32.0-36.0); MEAN CORPUSCULAR VOLUME 87.8 fL (81.0-99.0); MEAN PLATELET VOLUME 8.7 fL (7.9-10.8); MONOCYTES # (AUTO) 0.7 10^3/uL (0.0-1.0); NEUTROPHILS # (AUTO) 8.5 10^3/uL (1.5-6.6); NEUTROPHILS % (AUTO) 72.8 %; PLT - PLATELET COUNT 421 10^3/uL (130-450); RED BLOOD COUNT 4.76 10^6/uL (4.20-5.40); RED CELL DISTRIBUTION WIDTH 11.9 % (12.0-15.0); WHITE BLOOD COUNT 11.7 x10^3/uL (4.8-10.8)
[2019-08-23 17:37] LABS: ALBUMIN 4.2 g/dL (3.2-5.5); ALBUMIN/GLOBULIN RATIO 1.3 (1.0-2.2); ALKALINE PHOSPHATASE 100 IU/L (42-121); ALT ALANINE AMINOTRANSFERASE 19 IU/L (10-60); AST ASPARTATE AMINOTRANSFERASE 18 IU/L (10-42); BILIRUBIN,TOTAL 0.7 mg/dL (0.2-1.0); BUN - BLOOD UREA NITROGEN 21 mg/dL (6-20); CALCIUM 9.6 mg/dL (8.5-10.3); CARBON DIOXIDE - CO2 22 mmol/L (21-32); CHLORIDE 105 mmol/L (101-111); CHOL/HDL RATIO 4.4 (<4.4); CHOLESTEROL 182 mg/dL; CREATININE 0.8 mg/dL (0.4-1.0); GFR - MDRD 79 (>89); GLUCOSE 113 mg/dL (70-100); HDL CHOLESTEROL 41 mg/dL; LDL CHOLESTEROL,CALCULATED 98 mg/dL; LDL/HDL RATIO 2.4 (<4.4); SODIUM 138 mmol/L (135-145); TOTAL PROTEIN 7.4 g/dL (6.7-8.2); VLDL CHOLESTEROL 43 mg/dL
== END 2019-08-23 17:03 | disposition home or self-care (01) ==
LOC: LAB 17:02
PROVIDERS: ATTEND Nurse Practitioner
DX: Z00.00 Encounter for general adult medical examination without abnormal findings (principal); E03.9 Hypothyroidism, unspecified; I10 Essential (primary) hypertension
CPT/HCPCS: 36415; 80053; 80061; 83721; 84443; 85025

== ENCOUNTER 2019-11-23 22:17 | Outpatient (CLI) | payer MEDICAID | END 2019-11-23 23:59 | disposition EMS.NT | LOC: EMS 22:17 | PROVIDERS: ATTEND Surgery | DX: S79.921A Unspecified injury of right thigh, initial encounter (principal); Y04.2XXA Assault by strike against or bumped into by another person, initial encounter ==

== ENCOUNTER 2021-11-24 09:12 | Emergency (ER) | payer MEDICAID ==
[2021-11-24 09:25] VITALS: BP 136/77
--- NOTE | 2021-11-24 09:44 | ED Physician Documentation ---
PD HPI URI - Stated complaint Stated Complaint: FEVER/CHILLS/BODY ACHES - Chief complaint Chief Complaint: Heent - History obtained from History obtained from: Patient - Additional information Additional information: 41-year-old woman who is not vaccinated against COVID has been sick for about a week with body aches, nonproductive cough, fever and chills. Multiple people in her household are sick and 1 has tested positive for COVID, the others have not yet been tested. She has a history of COPD related to smoking and continues to smoke. Review of Systems Constitutional: reports: Fever, Chills, Myalgias, Fatigue Nose: reports: Rhinorrhea / runny nose Throat: reports: Sore throat Cardiac: denies: Chest pain / pressure Respiratory: reports: Cough. 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 HEENT: None Psych: Depression, Anxiety, Post traumatic stress disorder Musculoskeletal: None, Chronic back pain Derm: None - Past Surgical History Past Surgical History: No - Present Medications Home Medications: Ambulatory Orders Medication Instructions Recorded Confirmed buPROPion HCl [Wellbutrin Sr] 200 mg PO DAILY 07/03/17 10/13/17 raNITIdine [Zantac] 1 tab PO BID 07/03/17 10/13/17 Albuterol Sulfate [Proventil Hfa 1 - 2 puffs IH Q4H PRN #1 10/07/17 10/13/17 Inhaler] hfa.aer.ad Levothyroxine Sodium 50 mcg PO DAILY 10/07/17 10/13/17 cefUROXime axetiL [Ceftin] 500 mg PO Q12H #20 tablet 10/13/17 Cyclobenzaprine [Flexeril] 10 mg PO TID PRN #7 tablet 11/15/17 Meloxicam [Mobic] 7.5 mg PO BID PRN #20 tablet 12/04/17 Mupirocin Calcium [Bactroban] 1 applic TP BID #30 cream..g. 06/09/18 cephALEXin [Keflex] 500 mg PO Q6H #28 capsule 06/09/18 Benzonatate [Tessalon] 200 mg PO QID PRN #20 cap 11/24/21 predniSONE [Deltasone] 60 mg PO DAILY 5 Days #15 tablet 11/24/21 - Allergies Allergies/Adverse Reactions: Allergies Allergy/AdvReac Type Severity Reaction Status Date / Time Penicillins Allergy Nausea Verified 11/24/21 09:25 codeine AdvReac Nausea Verified 11/24/21 09:25 - Social History Does the pt smoke?: Yes Smoking Status: Current every day smoker Does the pt drink ETOH?: No Does the pt have substance abuse?: No - Immunizations Immunizations are current?: Yes - POLST Patient has POLST: No PD ED PE NORMAL - Vitals Vital signs reviewed: Yes - General General: Alert and oriented X 3, No acute distress - HEENT HEENT: Pharynx benign - Neck Neck: Supple, no meningeal sign, No bony TTP - Cardiac Cardiac: RRR, No murmur - Respiratory Respiratory: No respiratory distress, Other (Mild expiratory wheezing without other focal findings) - Back Back: No CVA TTP, No spinal TTP - Derm Derm: Normal color, Warm and dry - Extremities Extremities: No edema, No calf tenderness / cord - Neuro Neuro: Alert and oriented X 3, Normal speech Results - Vitals Vitals: Vital Signs - 24 hr 11/24/21 09:19 Temperature 37.4 C Heart Rate 98 Respiratory 17 Rate Blood Pressure 136/77 H O2 Saturation 99 Oxygen O2 Source Room air PD MEDICAL DECISION MAKING - ED course ED course: 41-year-old woman likely has COVID. Also has a wheezy flare of COPD which will be treated with steroids. No evidence of bacterial infection necessitating antibiotics. Departure - Departure Disposition: 01 Home, Self Care Clinical Impression: URI (upper respiratory infection), COPD exacerbation Condition: Good Record reviewed to determine appropriate education?: Yes Instructions: ED COPD Flare Prescriptions: predniSONE [Deltasone] 60 mg PO DAILY 5 Days #15 tablet Benzonatate [Tessalon] 200 mg PO QID PRN #20 cap PRN Reason: Cough Comments: Prescriptions were [facility] [place]. You have a Covid test pending. You need to self quarantine until the result is done and negative. Do not leave your house. Do not get near anybody. The results should be done in 48 to 72 hours. We will call with a positive result, the fastest way to get a negative result for confirmation though is to go to the hospital website at [email or web address], click on the my [facility] tab and sign up for the patient portal. If any friends or family get sick and would like to have a Covid test done, but do not have signs or symptoms that would necessitate being hospitalized, there a re multiple local options for Covid testing. [facility] keeps an updated list of testing and vaccination options at: [email or web address].
== END 2021-11-24 09:54 | disposition home or self-care (01) ==
LOC: ED 09:12
DX: U07.1 COVID-19 (principal); J06.9 Acute upper respiratory infection, unspecified; J44.1 Chronic obstructive pulmonary disease with (acute) exacerbation; I10 Essential (primary) hypertension; F17.200 Nicotine dependence, unspecified, uncomplicated
CPT/HCPCS: 99283

== ENCOUNTER 2022-03-30 18:10 | Emergency (ER) | payer MEDICAID ==
--- NOTE | 2022-03-30 18:48 | ED Physician Documentation ---
History of Present Illness - Stated complaint Stated Complaint: LEFT FOOT INJURY - Chief complaint Chief Complaint: Ext Problem - Additonal information Additional information: 41-year-old female presents emergency department for evaluation of 2 days left foot pain. She was walking barefoot, descending some stairs when she missed the last step and her foot landed directly on the toes and was flexed backwards posteriorly. Since then she has had difficulty bearing weight and has pain on the ball of her foot. She does report a remote history of ankle fracture but no fracture involving the foot. 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 HEENT: None Psych: Depression, Anxiety, Post traumatic stress disorder Musculoskeletal: None, Chronic back pain Derm: None - Past Surgical History Past Surgical History: No - Present Medications Home Medications: Ambulatory Orders Medication Instructions Recorded Confirmed buPROPion HCl [Wellbutrin Sr] 200 mg PO DAILY 07/03/17 10/13/17 raNITIdine [Zantac] 1 tab PO BID 07/03/17 10/13/17 Albuterol Sulfate [Proventil Hfa 1 - 2 puffs IH Q4H PRN #1 10/07/17 10/13/17 Inhaler] hfa.aer.ad Levothyroxine Sodium 50 mcg PO DAILY 10/07/17 10/13/17 cefUROXime axetiL [Ceftin] 500 mg PO Q12H #20 tablet 10/13/17 Cyclobenzaprine [Flexeril] 10 mg PO TID PRN #7 tablet 11/15/17 Meloxicam [Mobic] 7.5 mg PO BID PRN #20 tablet 12/04/17 Mupirocin Calcium [Bactroban] 1 applic TP BID #30 cream..g. 06/09/18 cephALEXin [Keflex] 500 mg PO Q6H #28 capsule 06/09/18 Benzonatate [Tessalon] 200 mg PO QID PRN #20 cap 11/24/21 predniSONE [Deltasone] 60 mg PO DAILY 5 Days #15 tablet 11/24/21 - Allergies Allergies/Adverse Reactions: Allergies Allergy/AdvReac Type Severity Reaction Status Date / Time Penicillins Allergy Nausea Verified 03/30/22 18:19 codeine AdvReac Nausea Verified 03/30/22 18:19 - Social History Does the pt smoke?: Yes Smoking Status: Current every day smoker Does the pt drink ETOH?: No Does the pt have substance abuse?: No - Immunizations Immunizations are current?: Yes - POLST Patient has POLST: No PD ED PE EXPANDED - General General: Alert, No acute distress - Extremities Extremities: Left foot (Normal flexion extension, inversion eversion and full range of motion of the foot and ankle. Tenderness elicited on the ball of the foot under the great toe, index and middle toes. Mild ecchymosis on the dorsum of the foot over the MCP joint of the great toe. 2+ DP pulse.) Results - Vitals Vitals: Vital Signs - 24 hr 03/30/22 18:19 Temperature 37.1 C Heart Rate 98 Respiratory 19 Rate Blood Pressure 144/86 H O2 Saturation 97 Oxygen O2 Source Room air - Rads (name of study) left foot xr Radiology: EMP read indepedently (no fx or dislocation) PD MEDICAL DECISION MAKING - ED course Complexity details: reviewed results, considered differential, d/w patient ED course: 41-year-old female presents emergency department for evaluation of 2 days acute left foot pain after hyper flexion of the foot when descending stairs. She has some tenderness of the MCP joint of the great toe but most of the pain is on the ball of the foot beneath the great toe index and middle toe. There is no swelling or erythema. X-rays without obvious findings. Patient is placed in a walking boot. Discussed that this likely represents sprain or contusion. If symptoms not markedly better in 7 to 10 days patient will follow-up with PCP for repeat imaging. Advised ice NSAID medication and Tylenol. Otherwise emergent return precautions discussed for concerns of infection Departure - Departure Disposition: 01 Home, Self Care Clinical Impression: Left foot pain Condition: Stable Record reviewed to determine appropriate education?: Yes Instructions: ED RICE Comments: You are seen today for pain in your left foot after hyperflexion of the foot when descending stairs. The x-ray does not show an obvious broken bone. As we discussed at the bedside a suspect that you have a contusion of the foot or sprain. I expect that this will simply get better over the next 7 to 10 days. Recommend that you ice the foot for 10 minutes 2-3 times a day. You can take [id number] Tylenol or an NSAID medication like ibuprofen or Aleve. If you feel that your symptoms are not markedly better in 7 to 10 days the you should follow-up with your primary care doctor for repeat imaging and reevaluation of the foot.
--- NOTE | 2022-03-30 19:16 | XRAY Report ---
PROCEDURE: Foot 3 View LT INDICATIONS: Trauma TECHNIQUE: 3 views of the foot were acquired. COMPARISON: None. FINDINGS: Bones: No fractures identified. No dislocations. No suspicious bony lesions. Small plantar calcanea l spur. Soft tissues: No tibiotalar joint effusion. Achilles tendon appears normal. IMPRESSION: No fracture identified. Consider follow-up radiographs in 10-14 days. Reviewed by: Lencho Vila MD on 03/30/2022 7:15 PM PDT Approved by: Lencho Vila MD on 03/30/2022 7:15 PM PDT Station ID: [id number]
[2022-03-30 19:29] VITALS: BP 138/80
== END 2022-03-30 19:29 | disposition home or self-care (01) ==
LOC: ED 18:10
DX: S99.922A Unspecified injury of left foot, initial encounter (principal); W10.9XXA Fall (on) (from) unspecified stairs and steps, initial encounter; F17.200 Nicotine dependence, unspecified, uncomplicated
CPT/HCPCS: 99282; 99283

== ENCOUNTER 2023-05-11 18:01 | Emergency (ER) | payer MEDICAID ==
--- NOTE | 2023-05-11 18:37 | ED Physician Documentation ---
PD HPI HEENT - Stated complaint Stated Complaint: COUGH,SORE THROAT - Chief complaint Chief Complaint: Resp - History obtained from History obtained from: Patient - Additional information Additional information: Patient comes to the emergency department chief complaint of ongoing nasal congestion, stuffy ears, sore throat, and cough. She was seen last week in urgent care and placed on a Z-Skyler, which she states did not help. The patient has a history of COPD and uses inhalers at home. She also was recently on steroid course. She just wants to be reevaluated and see why she is still having symptoms. No other complaints at this time. 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 HEENT: None Psych: Depression, Anxiety, Post traumatic stress disorder Musculoskeletal: None, Chronic back pain Derm: None - Past Surgical History Past Surgical History: No - Present Medications Home Medications: Ambulatory Orders Medication Instructions Recorded Confirmed buPROPion HCl [Wellbutrin Sr] 200 mg PO DAILY 07/03/17 10/13/17 raNITIdine [Zantac] 1 tab PO BID 07/03/17 10/13/17 Albuterol Sulfate [Proventil Hfa 1 - 2 puffs IH Q4H PRN #1 10/07/17 10/13/17 Inhaler] hfa.aer.ad Levothyroxine Sodium 50 mcg PO DAILY 10/07/17 10/13/17 cefUROXime axetiL [Ceftin] 500 mg PO Q12H #20 tablet 10/13/17 Cyclobenzaprine [Flexeril] 10 mg PO TID PRN #7 tablet 11/15/17 Meloxicam [Mobic] 7.5 mg PO BID PRN #20 tablet 12/04/17 Mupirocin Calcium [Bactroban] 1 applic TP BID #30 cream..g. 06/09/18 cephALEXin [Keflex] 500 mg PO Q6H #28 capsule 06/09/18 Benzonatate [Tessalon] 200 mg PO QID PRN #20 cap 11/24/21 predniSONE [Deltasone] 60 mg PO DAILY 5 Days #15 tablet 11/24/21 Benzonatate [Tessalon] 200 mg PO TID PRN #15 cap 05/11/23 - Allergies Allergies/Adverse Reactions: Allergies Allergy/AdvReac Type Severity Reaction Status Date / Time Penicillins Allergy Nausea Verified 05/11/23 18:11 codeine AdvReac Nausea Verified 05/11/23 18:11 - Social History Does the pt smoke?: Yes Smoking Status: Current every day smoker Does the pt drink ETOH?: No Does the pt have substance abuse?: No - Immunizations Immunizations are current?: Yes - POLST Patient has POLST: No PD ED PE NORMAL - Vitals Vital signs reviewed: Yes - General General: Alert and oriented X 3, No acute distress, Well developed/nourished - HEENT HEENT: Atraumatic, PERRL, EOMI, Moist mucous membranes, Other (Mild pharyngeal erythema.) - Neck Neck: Supple, no meningeal sign - Cardiac Cardiac: RRR, No murmur, Strong equal pulses - Respiratory Respiratory: No respiratory distress, Clear bilaterally - Abdomen Abdomen: Soft, Non tender, Non distended - Derm Derm: Normal color, Warm and dry, No rash - Extremities Extremities: No deformity - Neuro Neuro: Alert and oriented X 3 - Psych Psych: Normal mood, Normal affect Results - Vitals Vitals: Vital Signs - 24 hr 05/11/23 18:08 Temperature 36.3 C L Heart Rate 102 H Respiratory 20 Rate Blood Pressure 139/85 H O2 Saturation 96 Oxygen O2 Source Room air PD Medical Decision Making - ED course Complexity details: reviewed results, re-evaluated patient, considered differential, d/w patient ED course: I discussed with the patient that she most likely has a viral illness and that she may have picked up another viral illness on top of this. Further antibiotics will not be helpful. We have talked about symptomatic management at home and I have given her a prescription for Tessalon Perles. We have discussed the usual indications for follow-up and return. Departure - Departure Disposition: 01 Home, Self Care Clinical Impression: Viral URI Condition: Stable Instructions: ED Viral Syndrome Prescriptions: Benzonatate [Tessalon] 200 mg PO TID PRN #15 cap PRN Reason: Cough Comments: A viral panel has been obtained and is pending at this time. Most likely, you have picked up one of the other viruses that are going around home. 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 Since you have already been on antibiotics and did not get better with the antibiotics, more antibiotics are not going to help as this is undoubtedly a viral illness. A prescription for cough medicine has been electronically transmitted to the [facility] pharmacy in [place] and you may pick it up this evening. He will most likely have symptoms for the next couple of weeks. Please follow-up with your primary care physician for further concerns
--- OUTSIDE RECORDS SUMMARY | 2023-05-11 18:39 | EXTERNAL MEDICAL SUMMARY RPT | Continuity of Care Document ---
Author Name Unknown Address [address] [place] [address] Phone Organization [facility] Address [address] [place] [address] Phone Care Team Providers Care Cap Inspector Name Role Phone Unavailable Unavailable Unavailable [place] Preboarder-C, Abida Unavailable Unavailable Medications date description facility 2023-05-04 00:00 methylprednisolone All 2023-05-04 00:00 fluticasone propionate All 2023-05-05 00:00 fluticasone propionate All 2023-05-07 00:00 fluticasone propionate All 2023-05-04 00:00 buspirone All 2023-05-05 00:00 buspirone All 2023-05-07 00:00 buspirone All 2023-05-04 00:00 levothyroxine All 2023-05-05 00:00 levothyroxine All 2023-05-07 00:00 levothyroxine All 2023-05-04 00:00 tiotropium bromide All 2023-05-05 00:00 tiotropium bromide All 2023-05-07 00:00 tiotropium bromide All 2023-05-04 00:00 azithromycin All 2023-05-04 00:00 fluticasone propionate All 2023-05-05 00:00 fluticasone propionate All 2023-05-07 00:00 fluticasone propionate All 2023-05-04 00:00 levothyroxine All 2023-05-05 00:00 levothyroxine All 2023-05-07 00:00 levothyroxine All 2023-05-04 00:00 methocarbamol All 2023-05-05 00:00 methocarbamol All 2023-05-07 00:00 methocarbamol All 2023-05-04 00:00 azelastine All 2023-05-05 00:00 azelastine All 2023-05-07 00:00 azelastine All 2023-05-04 00:00 fluticasone propionate All 2023-05-05 00:00 fluticasone propionate All 2023-05-07 00:00 fluticasone propionate All 2023-05-04 00:00 methylprednisolone All 2023-05-04 00:00 methocarbamol All 2023-05-05 00:00 methocarbamol All 2023-05-07 00:00 methocarbamol All 2023-05-04 00:00 topiramate All 2023-05-05 00:00 topiramate All 2023-05-07 00:00 topiramate All 2023-05-04 00:00 montelukast All 2023-05-05 00:00 montelukast All 2023-05-07 00:00 montelukast All 2023-05-04 00:00 fluticasone propion-salmeterol All 2023-05-05 00:00 fluticasone propion-salmeterol All 2023-05-07 00:00 fluticasone propion-salmeterol All 2023-05-04 00:00 methylprednisolone All 2023-05-04 00:00 levothyroxine All 2023-05-05 00:00 levothyroxine All 2023-05-07 00:00 levothyroxine All 2023-05-04 00:00 azithromycin All 2023-05-04 00:00 gabapentin All 2023-05-05 00:00 gabapentin All 2023-05-07 00:00 gabapentin All 2023-05-04 00:00 quetiapine All 2023-05-05 00:00 quetiapine All 2023-05-07 00:00 quetiapine All 2023-05-04 00:00 olanzapine All 2023-05-05 00:00 olanzapine All 2023-05-07 00:00 olanzapine All 2023-05-04 00:00 methocarbamol All 2023-05-05 00:00 methocarbamol All 2023-05-07 00:00 methocarbamol All 2023-05-04 00:00 fluticasone propionate All 2023-05-05 00:00 fluticasone propionate All 2023-05-07 00:00 fluticasone propionate All 2023-05-04 00:00 azelastine All 2023-05-05 00:00 azelastine All 2023-05-07 00:00 azelastine All 2023-05-04 00:00 tiotropium bromide All 2023-05-05 00:00 tiotropium bromide All 2023-05-07 00:00 tiotropium bromide All 2023-05-04 00:00 fluticasone propion-salmeterol All 2023-05-05 00:00 fluticasone propion-salmeterol All 2023-05-07 00:00 fluticasone propion-salmeterol All 2023-05-04 00:00 montelukast All 2023-05-05 00:00 montelukast All 2023-05-07 00:00 montelukast All 2023-05-04 00:00 olanzapine All 2023-05-05 00:00 olanzapine All 2023-05-07 00:00 olanzapine All 2023-05-04 00:00 gabapentin All 2023-05-05 00:00 gabapentin All 2023-05-07 00:00 gabapentin All 2023-05-04 00:00 topiramate All 2023-05-05 00:00 topiramate All 2023-05-07 00:00 topiramate All 2023-05-04 00:00 azelastine All 2023-05-05 00:00 azelastine All 2023-05-07 00:00 azelastine All 2023-05-04 00:00 azithromycin All 2023-05-04 00:00 quetiapine All 2023-05-05 00:00 quetiapine All 2023-05-07 00:00 quetiapine All 2023-05-04 00:00 montelukast All 2023-05-05 00:00 montelukast All 2023-05-07 00:00 montelukast All 2023-05-04 00:00 buspirone All 2023-05-05 00:00 buspirone All 2023-05-07 00:00 buspirone All 2023-05-04 00:00 tiotropium bromide All 2023-05-05 00:00 tiotropium bromide All 2023-05-07 00:00 tiotropium bromide All 2023-05-04 00:00 quetiapine All 2023-05-05 00:00 quetiapine All 2023-05-07 00:00 quetiapine All 2023-05-04 00:00 olanzapine All 2023-05-05 00:00 olanzapine All 2023-05-07 00:00 olanzapine All 2023-05-04 00:00 azithromycin All 2023-05-04 00:00 gabapentin All 2023-05-05 00:00 gabapentin All 2023-05-07 00:00 gabapentin All 2023-05-04 00:00 azelastine All 2023-05-05 00:00 azelastine All 2023-05-07 00:00 azelastine All 2023-05-04 00:00 buspirone All 2023-05-05 00:00 buspirone All 2023-05-07 00:00 buspirone All 2023-05-04 00:00 olanzapine All 2023-05-05 00:00 olanzapine All 2023-05-07 00:00 olanzapine All 2023-05-04 00:00 montelukast All 2023-05-05 00:00 montelukast All 2023-05-07 00:00 montelukast All 2023-05-04 00:00 fluticasone propion-salmeterol All 2023-05-05 00:00 fluticasone propion-salmeterol All 2023-05-07 00:00 fluticasone propion-salmeterol All 2023-05-04 00:00 quetiapine All 2023-05-05 00:00 quetiapine All 2023-05-07 00:00 quetiapine All 2023-05-04 00:00 topiramate All 2023-05-05 00:00 topiramate All 2023-05-07 00:00 topiramate All 2023-05-04 00:00 gabapentin All 2023-05-05 00:00 gabapentin All 2023-05-07 00:00 gabapentin All 2023-05-04 00:00 topiramate All 2023-05-05 00:00 topiramate All 2023-05-07 00:00 topiramate All 2023-05-04 00:00 methocarbamol All 2023-05-05 00:00 methocarbamol All 2023-05-07 00:00 methocarbamol All 2023-05-04 00:00 methylprednisolone All 2023-05-04 00:00 buspirone All 2023-05-05 00:00 buspirone All 2023-05-07 00:00 buspirone All 2023-05-04 00:00 tiotropium bromide All 2023-05-05 00:00 tiotropium bromide All 2023-05-07 00:00 tiotropium bromide All 2023-05-04 00:00 fluticasone propion-salmeterol All 2023-05-05 00:00 fluticasone propion-salmeterol All 2023-05-07 00:00 fluticasone propion-salmeterol All 2023-05-04 00:00 levothyroxine All 2023-05-05 00:00 levothyroxine All 2023-05-07 00:00 levothyroxine All Problems date description facility 2023-05-04 00:00 Bacterial sinusitis All 2023-05-04 00:00 Chronic sinusitis, unspecified All Procedures date description facility 2023-05-04 00:00 Visit Code Hold All Vital Signs date measurement value units 2023-05-04 00:00 BMI 43.58 kg/m2 2023-05-04 00:00 BP_diastolic 90 mmHg 2023-05-04 00:00 BP_systolic 136 mmHg 2023-05-04 00:00 heart_rate 93 /min 2023-05-04 00:00 height_metric 149.86 cm 2023-05-04 00:00 height_standard 59 in 2023-05-04 00:00 respiration_rate 18 /min 2023-05-04 00:00 temperature_metric 36.5 C 2023-05-04 00:00 temperature_standard 97.7 F 2023-05-04 00:00 weight_metric 97.52 kg 2023-05-04 00:00 weight_standard 215 lb
[2023-05-11 18:45] VITALS: BP 130/82
[2023-05-11 19:16] LABS: B. PARAPERTUSSIS- RESP PCR PAN NOT DETECTED; B. PERTUSSIS- RESP PCR PANEL NOT DETECTED; C. PNEUMONIAE- RESP PCR PANEL NOT DETECTED; CORONAVIRUS 229E-RESP PCR NOT DETECTED; CORONAVIRUS HKU1-RESP PCR NOT DETECTED; CORONAVIRUS NL63-RESP PCR NOT DETECTED; CORONAVIRUS OC43-RESP PCR NOT DETECTED; HUMAN METAPNEUMOVIRUS NOT DETECTED; INFLUENZA A- RESP PCR PANEL NOT DETECTED; INFLUENZA B - RESP PCR PANEL NOT DETECTED; M. PNEUMONIAE- RESP PCR PANEL NOT DETECTED; PARAINFLUENZA VIRUS 1 NOT DETECTED; PARAINFLUENZA VIRUS 2 NOT DETECTED; PARAINFLUENZA VIRUS 3 NOT DETECTED; PARAINFLUENZA VIRUS 4 NOT DETECTED; RHINOVIRUS/ENTEROVIRUS NOT DETECTED; RSV- RESP PCR PANEL NOT DETECTED; SARS-CoV-2 -RESP PCR PANEL NOT DETECTED
== END 2023-05-11 18:41 | disposition home or self-care (01) ==
LOC: ED 18:01
DX: J06.9 Acute upper respiratory infection, unspecified (principal); I10 Essential (primary) hypertension; E03.9 Hypothyroidism, unspecified; J44.9 Chronic obstructive pulmonary disease, unspecified; F17.200 Nicotine dependence, unspecified, uncomplicated; Z79.899 Other long term (current) drug therapy; Z20.822 Contact with and (suspected) exposure to COVID-19
CPT/HCPCS: 87633; 99283